=== PATIENT | female | born 2000 | race Two or more races ===

== ENCOUNTER → 2025-03-31 | Outpatient (CLI) | payer MEDICAID, SELFPAY ==
--- NOTE | 2025-03-31 16:15 | XR_ITS ---
Examination: Complete OB ultrasound greater than 14 weeks Date and time of exam: March 31, 2025 1610 hours INDICATIONS: Unknown size and dates Findings: Viable intrauterine single fetus with single amniotic sac presentation breech spine maternal right. Cardiac motion 147 BPM Placenta anterior grade 1 Umbilical cord insertion seen Adequate amniotic fluid Cervix 6.5 cm Ovaries obscured by bowel gas. Composite estimated gestational age based on BPD, head circumference, abdominal circumference, femur length is 24 weeks 1 day Estimated weight 739 g. Survey of intracranial anatomy, spinal anatomy, abdominal anatomy, four-chamber heart performed with no abnormalities identified. Impression: Viable intrauterine gestation breech presentation Estimated gestational age 24 weeks 1 day Estimated weight 739 g.
== END | disposition home or self-care (01) ==
PROVIDERS: PCP Physician Assistant; Referring Provider Physician Assistant; Visit Provider Physician Assistant
DX: O32.1XX0 Maternal care for breech presentation, not applicable or unspecified (principal); Z3A.24 24 weeks gestation of pregnancy
CPT/HCPCS: 76805